=== PATIENT | female | born 1975 | race Caucasian/White ===

== ENCOUNTER 2017-12-23 11:28 | Emergency (ER) | payer OTHER ==
[2017-12-23 11:37] VITALS: BP 99/62
--- NOTE | 2017-12-23 12:15 | UC ---
Lower Extremity/Ankle HPI - HPI Summary HPI Summary: While on a hike yesterday pt noticed achy, odd feeling in her R leg extending up into hip. Has seen some localized redness and firmness in superficial veins on sides of calf and in R upper thigh. Has been tested for clotting d/o because sister had an unprovoked clot in her arm, states she was "negative for everything." Also has hx of melanoma, told it was all out. This pain feels unlike muscle soreness she's had in the past. - History of Current Complaint Chief Complaint: UCLowerExtremity Stated Complaint: LEG COMPLAINT Time Seen by Provider: 12/23/17 11:57 Hx Obtained From: Patient ?: No Onset/Duration: Gradual Onset, Lasting Hours Severity Initially: Mild Severity Currently: Mild Pain Intensity: 4 Aggravating Factor(s): Standing, Ambulation Alleviating Factor(s): Rest Able to Bear Weight: Yes - Allergies/Home Medications Allergies/Adverse Reactions: Allergies Allergy/AdvReac Type Severity Reaction Status Date / Time No Known Allergies Allergy Verified 12/23/17 11:36 Home Medications: Home Medications LevoCETirizine TAB (NF) [Xyzal TAB (NF)] 5 mg PO DAILY 12/23/17 [History Confirmed 12/23/17] PMH/Surg Hx/FS Hx/Imm Hx Other Cardiovascular History: "great saphenous veins closed off" Other Cancer History: Melanoma - Surgical History Surgical History: Yes Surgery Procedure, Year, and Place: MELANOMA EXCISIONS, ORAL SURGERY - Family History Known Family History: Positive: Blood Disorder - blood clots - Social History Occupation: Employed Full-time Lives: With Family Alcohol Use: Occasionally Substance Use Type: None Smoking Status (MU): Never Smoked Tobacco Review of Systems Constitutional: Negative Skin: Other - redness, varicose veins Eyes: Negative ENT: Negative Respiratory: Negative Cardiovascular: Negative Gastrointestinal: Negative Genitourinary: Negative Motor: Negative Neurovascular: Negative Musculoskeletal: Negative Neurological: Negative Psychological: Negative Is Patient Immunocompromised?: No All Other Systems Reviewed And Are Negative: Yes Physical Exam Triage Information Reviewed: Yes Appearance: Well-Appearing, No Pain Distress, Well-Nourished Vital Signs: Initial Vital Signs Temp 97.8 F 12/23/17 11:33 Pulse 72 12/23/17 11:33 Resp 18 12/23/17 11:33 BP 99/62 12/23/17 11:33 Pulse Ox 100 12/23/17 11:33 Vital Signs Reviewed: Yes Eye Exam: Normal Eyes: Positive: Conjunctiva Clear ENT Exam: Normal ENT: Positive: Normal ENT inspection, Hearing grossly normal, Pharynx normal, TMs normal Neck exam: Normal Neck: Positive: Supple, Nontender, No Lymphadenopathy Respiratory Exam: Normal Respiratory: Positive: Chest non-tender, Lungs clear, Normal breath sounds, No respiratory distress, No accessory muscle use Cardiovascular Exam: Normal Cardiovascular: Positive: RRR, No Murmur Musculoskeletal Exam: Other - R mid-calf circumference 39cm, L mid-calf circumference 38cm Musculoskeletal: Positive: Strength Intact, ROM Intact Neurological Exam: Normal Neurological: Positive: Alert Psychological Exam: Normal Skin Exam: Other - few superficial varicose veins, no erythema or warmth. Lower Extremity Course/Dx - Differential Dx/Diagnosis Provider Diagnoses: R leg pain and swelling. R leg superficial varicosities Discharge - Sign-Out/Discharge Documenting (check all that apply): Discharge/Admit/Transfer - Discharge Plan Condition: Stable Disposition: HOME Patient Education Materials: Leg Pain (ED) Referrals: Tami Almonte MD [Primary Care Provider] - Additional Instructions: I recommend you get seen in the emergency department right away. There is a chance you could have a clot in your deep vein system, which would need immediate treatment. - Billing Disposition and Condition Condition: STABLE Disposition: Home
== END 2017-12-23 12:16 | disposition home or self-care (01) ==
LOC: UCEAST 11:28
DX: I83.891 Varicose veins of right lower extremity with other complications (principal); Z85.820 Personal history of malignant melanoma of skin; Z83.2 Family history of diseases of the blood and blood-forming organs and certain disorders involving the immune mechanism
CPT/HCPCS: 99212; G0463

== ENCOUNTER 2017-12-23 12:53 | Emergency (ER) | payer OTHER ==
--- NOTE | 2017-12-23 15:52 | RAD ---
HISTORY: RIGHT CALF PAIN COMPARISONS: None relevant TECHNIQUE: Multiple transverse and longitudinal ultrasound images were obtained of the right lower extremity from the level of the common femoral vein inferiorly through to the infrapopliteal veins using grayscale, color Doppler, and spectral Doppler imaging with and without compression and with augmentation. Comparison images were obtained of the contralateral common femoral vein. FINDINGS: VEINS: The venous system of the right lower extremity is compressible throughout its course, with normal flow on color Doppler imaging and normal response to augmentation on spectral Doppler imaging. SOFT TISSUES: Unremarkable. OTHER FINDINGS: None. IMPRESSION: NO RIGHT LOWER EXTREMITY DEEP VEIN THROMBOSIS
--- NOTE | 2017-12-23 17:27 | ED ---
Lower Extremity - HPI Summary HPI Summary: Pt here w/ Rt leg edema and vascular congestion yesterday after a long hike. Persisted into this morning so she became worried about a DVT. Admits to Rt knee arthritis and h/o vein closure in the past when she lived in [place]. Her swelling and pain has improved since she's been resting on the stretcher with her leg elevated. WHen is was bothering her, it felt like aching and was burning with redness along the medial aspect. Denies fever, chills CP sob, Denies use of hormone, smoking. H/o melanoma. - History of Current Complaint Chief Complaint: EDExtremityLower Stated Complaint: POSS BLOOD CLOT Time Seen by Provider: 12/23/17 15:33 Hx Obtained From: Patient, Family/Tape Librarian - , children Pain Intensity: 3 - Allergies/Home Medications Allergies/Adverse Reactions: Allergies Allergy/AdvReac Type Severity Reaction Status Date / Time No Known Allergies Allergy Verified 12/23/17 13:07 PMH/Surg Hx/FS Hx/Imm Hx Previously Healthy: Yes Endocrine/Hematology History: Denies: Hx Anticoagulant Therapy, Hx Blood Disorders, Hx Diabetes, Hx Unexplained Bleeding, Hx Coagulopothy Cardiovascular History: Denies: Hx Hypertension, Hx Pacemaker/ICD Respiratory History: Denies: Hx Asthma Sensory History: Denies: Hx Hearing Aid Psychiatric History: Denies: Hx Panic Disorder - Cancer History Cancer Type, Location and Year: MELANOMA - Surgical History Surgery Procedure, Year, and Place: MELANOMA EXCISIONS, ORAL SURGERY, vascular closure of vein(s) of LE's Infectious Disease History: No Infectious Disease History: Denies: Traveled Outside the [place] in Last 30 Days - Family History Known Family History: Positive: Blood Disorder - blood clots - sister - Social History Lives: With Family Alcohol Use: Occasionally Hx Substance Use: No Substance Use Type: Reports: None Hx Tobacco Use: No Smoking Status (MU): Never Smoked Tobacco Review of Systems Constitutional: Negative Negative: Fever, Chills, Fatigue Cardiovascular: Negative Negative: Palpitations, Chest Pain Respiratory: Negative Negative: Shortness Of Breath, Cough Gastrointestinal: Negative Negative: Vomiting, Nausea Positive: no symptoms reported Positive: Edema. Negative: Decreased ROM Skin: Other - vessels of this extremity are swollen - no streaking or lesions Neurological: Negative Positive: Anxious All Other Systems Reviewed And Are Negative: Yes Physical Exam Triage Information Reviewed: Yes Vital Signs On Initial Exam: Initial Vitals Temp Pulse Resp BP Pulse Ox 97.4 F 63 16 101/70 98 12/23/17 13:04 12/23/17 13:04 12/23/17 13:04 12/23/17 13:04 12/23/17 13:04 Vital Signs Reviewed: Yes Appearance: Positive: Well-Appearing, No Pain Distress, Well-Nourished Skin: Positive: Warm, Skin Color Reflects Adequate Perfusion, Dry - spider veins along medial aspect of Rt knee and subtly more prominent veins just distal to popliteal space and medial thigh - NTTP, very subtle tissue edema compared to Lt - appears congested; no erythema, no lesions, no streaking ENT: Positive: Hearing grossly normal Respiratory/Lung Sounds: Positive: Breath Sounds Present Cardiovascular: Positive: Pulses are Symmetrical in both Upper and Lower Extremities. Negative: Leg Edema Left, Leg Edema Right - (-) Gilberto's Musculoskeletal: Positive: Normal, Strength/ROM Intact - neg special tests Neurological: Positive: Normal, Sensory/Motor Intact, Alert, Oriented to Person Place, Time, CN Intact II-III Psychiatric: Positive: Anxious Diagnostics - Vital Signs Vital Signs Temp Pulse Resp BP Pulse Ox 12/23/17 14:44 97.3 F 77 16 110/68 100 12/23/17 13:04 97.4 F 63 16 101/70 98 - Laboratory Lab Statement: Any lab studies that have been ordered have been reviewed, and results considered in the medical decision making process. Lower Extremity Course/Dx - Course Course Of Treatment: U/S: neg for DVT, phlebitis. Suspect with long hike and h/ o vascular closure on LE's in the past, pt experienced poor fluid rturn and this may have resulted in tissue/ and vascular congestion. Discussed that she needs close f/u and if sx persist or worsen, a repeat U/S is warranted given her sister's h/o blood clots. Pt agrees w/ plan. Will also start an ASA daily until she f/u's w/ her PCP. She reports her leg looks better since resting and elevating it while waiting to be seen. Reviewed danger s/sx of when to return to ED. - Diagnoses Provider Diagnoses: Right leg swelling Discharge - Sign-Out/Discharge Documenting (check all that apply): Discharge/Admit/Transfer - Discharge Plan Condition: Stable Disposition: HOME Patient Education Materials: Leg Edema (ED) Referrals: Tami Almonte MD [Primary Care Provider] - Aurelio Hunter MD [Medical Doctor] - Additional Instructions: The definitive cause of your leg swelling was not identified today however it is suspected that this was the result of your hike yesterday in the face of less veins to clear fluid from the area. Continue to rest and elevate. You may also ice the area to reduce swelling and heat. May take aspirin or ibuprofen with food for pain and achiness. Follow-up with her PCP this week if symptoms persist. You were also given the number of a vascular specialist if you'd like to seek further consult there. *If you develop worsening of pain, chest pain, shortness of breath, fever, chills, increased heart rate, bloody cough, return to the emergency department. - Billing Disposition and Condition Condition: STABLE Disposition: Home
[2017-12-23 18:15] VITALS: BP 107/61
== END 2017-12-23 18:12 | disposition home or self-care (01) ==
LOC: ED 12:53
DX: M79.89 Other specified soft tissue disorders (principal); M17.11 Unilateral primary osteoarthritis, right knee; Z86.79 Personal history of other diseases of the circulatory system
CPT/HCPCS: 99282

== ENCOUNTER 2018-06-27 12:41 | Emergency (ER) | payer OTHER ==
--- OUTSIDE RECORDS SUMMARY | 2018-06-27 13:58 | XMS REPORT | Continuity of Care Document ---
:1975 External Reference #:[id number] Author Name Pagan, Lori Care Team Providers Name Role Phone Jessie Locke M.D. Primary Care Physician Unavailable Payers Type Date Identification Numbers Payment Provider Subscriber Policy Number: [id number] [employer] [place] [employer] Number: [id number] [address] PayID: [id number] [place] [address] Effective: 2016 Policy Number: [id number] [facility] [place] Expires: 2018 Group Number: [id number]% [id number] PayID: [id number] [facility] [address] [place] [address] Advance Directives Type Date Description Status Comment Other Directive 03/08/2017 Health Care Proxy Current and Verified Problems Date Description Provider Status Onset: 06/06/2016 H/O Malignant melanoma Gabe Mosquera NP Active Onset: 06/06/2016 Fear of flying Gabe Mosquera NP Active Onset: 06/12/2017 Osteoarthritis of knee Tami Almonte M.D. Active Note: grade 1 Onset: 06/12/2017 Allergic rhinitis Tami Almonte M.D. Active Note: dust /grass Onset: Varicose veins of lower extremity Active Note: R leg ( saw Dr. 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 daily Multivitamin 00 Active Tablets 1 by mouth Unknown Adult /0000 every day Calcium Active Tablets 500-125mg 1 by mouth Unknown 500/Vitamin D /0000 -Unit three days a week Fish Oil Active Capsules 300mg three times a Unknown / week Xanax Active Tablets 0.5mg 30tab as needed for F40.243 Jessie s flying Chucky MD Xyzal Allergy Active Tablets 1 by mouth Unknown 24HR /0000 every day Odactra Active Tablets Sub 12SQ-HDM daily Unknown /0000 Zyrtec Allergy 06/06 Hx Tablets 10mg 30tab 1 by mouth J30.9 /2015 s every day for [place], - the next 3-4 RECEIVABLES SPECIALIST 01/22 weeks, as needed Triple 06/06 Hx Ointment 1% 30gm apply L08.9 Gabe topically [place], Plus - twice daily x RECEIVABLES SPECIALIST 02/27 7-10 days /2016 Buspirone HCL Hx Tablets 10mg takes F43.0 Unknown /0000 occationally - 06/12 Vitamin D Hx 1000Units 3 times a Unknown /0000 week - 06/19 Medications Administered in Office Medication Date Status Form Strength Qnty SIG Indications Ordering Provider Celestone 3 mg Administered Injection Oscar and 3mg Jg Etienne MD Immunizations CPT Code Status Date Vaccine Lot # [id number] Given 04/02/2018 Influenza Virus Vaccine, Quadrivalent, Split, Preservative Free [id number] Given 03/16/2017 Influenza Virus Vaccine, Quadrivalent, Split, Preservative Free Vital Signs Date Vital Result Comment 06/19/2018 1:14pm Height 67.75 inches 5'7.75" Weight 148.00 lb Heart Rate 88 /min BP Systolic Sitting 92 mmHg BP Diastolic Sitting 58 mmHg Body Temperature 96.6 F O2 % BldC Oximetry 99 % BMI (Body Mass Index) 22.7 kg/m2 01/22/2018 2:41pm Weight 152.38 lb Heart Rate 71 /min BP Systolic Sitting 108 mmHg BP Diastolic Sitting 62 mmHg Body Temperature 98.9 F O2 % BldC Oximetry 98 % 06/12/2017 9:12am Height 68.9 inches 5'8.90" Weight 180.12 lb Heart Rate 81 /min BP Systolic Sitting 108 mmHg BP Diastolic Sitting 76 mmHg Body Temperature 97.9 F O2 % BldC Oximetry 98 % BMI (Body Mass Index) 26.7 kg/m2 05/25/2017 1:30pm Height 68 inches 5'8" Weight 178.00 lb BP Systolic 114 mmHg BP Diastolic 68 mmHg Respiratory Rate 20 /min Pain Level 0 BMI (Body Mass Index) 27.1 kg/m2 05/11/2017 10:30am Height 68 inches 5'8" Weight 178.00 lb Heart Rate 71 /min BP Systolic 101 mmHg BP Diastolic 69 mmHg BMI (Body Mass Index) 27.1 kg/m2 02/28/2017 9:16am Height 68 inches 5'8" Weight 175.50 lb Heart Rate 80 /min BP Systolic Sitting 100 mmHg BP Diastolic Sitting 60 mmHg Body Temperature 98.0 F O2 % BldC Oximetry 97 % BMI (Body Mass Index) 26.7 kg/m2 06/06/2016 8:24am Height 68 inches 5'8" Weight 171.38 lb Heart Rate 80 /min BP Systolic Sitting 110 mmHg BP Diastolic Sitting 70 mmHg Body Temperature 98.1 F O2 % BldC Oximetry 98 % BMI (Body Mass Index) 26.1 kg/m2 Results Test Date Facility Test Result H/L Range Note Laboratory test 06/12/2017 [facility] Cytology SEE RESULT [address] [address] [phone] Lipid Profile 06/05/2017 [facility] Triglycerides 74 mg/dL 2 (Trig/Chol/HDL) [address] [place] [address] [phone] Cholesterol 166 mg/dL 3 HDL Cholesterol 54.9 mg/dL 4 LDL Cholesterol 96 mg/dL 5 Comp Metabolic Panel 06/05/2017 [facility] Sodium 137 mmol/L N 133-[address] [place] [address] [phone] Potassium 4.3 mmol/L N 3.5-5.0 Chloride 105 mmol/L N 101-111 Co2 Carbon Dioxide 26 mmol/L N 22-32 Anion Gap 6 mmol/L N 2-11 Glucose 86 mg/dL N 70-100 Blood Urea Nitrogen 12 mg/dL N 6-24 Creatinine 0.79 mg/dL N 0.51-0.95 BUN/Creatinine Ratio 15.2 N 8-20 Calcium 9.3 mg/dL N 8.6-10.3 Total Protein 7.3 g/dL N 6.4-8.9 Albumin 4.4 g/dL N 3.2-5.2 Globulin 2.9 g/dL N 2-4 Albumin/Globulin Ratio 1.5 N 1-3 Total Bilirubin 0.60 mg/dL N 0.2-1.0 Alkaline Phosphatase 49 U/L N 34-104 Alt 12 U/L N 7-52 Ast 17 U/L N 13-39 Egfr Non- 81.0 >60 Egfr 104.2 >60 6 Laboratory test 10/06/2016 [facility] Surgical SEE RESULT 7 , [address] [place] [address] [phone] Laboratory test 06/06/2016 [facility] TSH (Thyroid 1.84 N 0.34 - finding DRIVE Stim Horm) mcIU/mL 5.60 [place] [address] [phone] CBC Auto Diff 06/06/2016 [facility] White Blood 6.8 10^3/uL N 3.5-[address] DRIVE Count 0.8 [place] [address] [phone] Red Blood Count 4.47 10^6/uL N 4.0-5.4 Hemoglobin 13.0 g/dL N 12.0-16.0 Hematocrit 39 % N 35-47 Mean Corpuscular Volume 87 fL N 80-97 Mean Corpuscular Hemoglobin 29 pg N 27-31 Mean Corpuscular HGB Conc 33 g/dL N 31-36 Red Cell Distribution Width 13 % N 10.5-15 Platelet Count 206 10^3/uL N 150-450 Mean Platelet Volume 9 um3 N 7.4-10.4 Abs Neutrophils 4.4 10^3/uL N 1.5-7.7 Abs Lymphocytes 1.7 10^3/uL N 1.0-4.8 Abs Monocytes 0.5 10^3/uL N 0-0.8 Abs Eosinophils 0.1 10^3/uL N 0-0.6 Abs Basophils 0 10^3/uL N 0-0.2 Abs Nucleated RBC 0.01 10^3/uL N Granulocyte % 65.4 % N 38-83 Lymphocyte % 25.1 % N 25-47 Monocyte % 7.1 % N 1-9 Eosinophil % 2.0 % N 0-6 Basophil % 0.4 % N 0-2 Nucleated Red Blood Cells % 0.1 N Basic Metabolic Panel 06/06/2016 [facility] Sodium 137 mmol/L N 133-[address] [place] [address] [phone] Potassium 4.0 mmol/L N 3.5-5.0 Chloride 103 mmol/L N 101-111 Co2 Carbon Dioxide 29 mmol/L N 22-32 Anion Gap 5 mmol/L N 2-11 Glucose 81 mg/dL N 70-100 Blood Urea Nitrogen 12 mg/dL N 6-24 Creatinine 0.74 mg/dL N 0.51-0.95 BUN/Creatinine Ratio 16.2 N 8-20 Calcium 9.3 mg/dL N 8.6-10.3 Egfr Non- 87.8 N >60 Egfr 113.0 N >60 9 1 SEE RESULT BELOW Name: PEGGYWASHINGTON A : [address]: Tami Almonte MD Acct: [id number] Unit: [id number] AGE: 41 Location: [facility] Re06/12/17 SEX: F Status: REG REF SPEC: [id number] NAHEED: 06/12/[address] [facility] [address]: Tami Almonte MD REQ: [id number] RECD: 06/12/17 STATUS: SOUT _ ORDERED: TP IMAGE ANAL, ECHOCARDIOGRAPHY TECH PHYS INTERP, HPV/Thin Prep, HPV 16/18 GENE COMMENTS: [id number] Negative for Intraepithelial lesion or Malignancy Reactive cellular changes associated with Inflammation (includes typical repair) A. Ectocervical/Endocervical Specimen Adequacy: Satisfactory of evaluation Transformation zone component identified Patient Information: HPV: High risk HPV RNA testing regardless of pap results. HPV 16/18 Genotype Reflex Actual Specimen Date: 06/12/17 Last Menstrual Date: 06/08/17 Previous Abnormal Pap Smears?:N Date Time Test Result Flag (u) Normal Range 06/12/17 0951 @ HPV RNA RFLX GE Negative Negative @ @ The high-risk HPV types detected by the assay include: 16, @ 18, 31, 33, 35, 39, 45, 51, 52, 56, 58, 59, 66, and 68. Signed (signature on file) Abraham Gomez MD 1626 This Pap test was evaluated with the assistance of the LibriLoopPrep Test Imaging System. Due to cytologic findings at the first aid officer microscope, comprehensive manual rescreening by a Vehicle Fare Collector may be required. The Pap Smear is a screening test designed to aid in the detection of premalignant and malignant conditions of the uterine cervix. It is not a diagnostic procedure and should not be used as the sole means of detecting cervical cancer. Both false- positive and false- negative reports do occur. Depending on your risk status, a Pap smear should be obtained and evaluated every 1-3 years. END OF REPORT * ML=Testing performed at Main Lab DEPARTMENT OF PATHOLOGY, [address] [place] [address] Abraham Gomez M.D. Director [facility] # [id number] 2 Desirable: <150 Borderline High: 150-199 High: 200-499 Very High: >500 3 Desirable: <200 Borderline High: 200-239 High: >239 4 Low: <40 Desirable: 40-60 High: >60 5 Desirable: <100 Near Optimal: 100-129 Borderline High: 130-159 High: 160-189 Very High: >189 6 Because ethnic data is not always readily available, this report includes an eGFR for both -Americans and non- Americans. The National Kidney Disease Education Program (NKDEP) does not endorse the use of the MDRD equation for patients that are not between the ages of 18 and 70, are , have extremes of body size, muscle mass, or nutritional status, or are non- or non-. According to the National Kidney Foundation, irrespective of diagnosis, the stage of the disease is based on the level of kidney function: Stage Description GFR(mL/min/1.73 m(2)) 1 Kidney damage with normal or decreased GFR 90 2 Kidney damage with mild decrease in GFR 60-89 3 Moderate decrease in GFR 30-59 4 Severe decrease in GFR 15-29 5 Kidney failure <15 (or dialysis) 7 [id number] 8 SEE RESULT BELOW Name: [place] : [address]: Riley Pham MD Acct: [id number] Unit: [id number] AGE: 41 Location: [facility] Re10/06/16 SEX: F Status: REG REF SPEC: [id number] NAHEED: 10/06/16-[address] [facility] [address]: Riley Pham MD REQ: [id number] RECD: 10/06/16-160 STATUS: PAUL SIM DR: Merry Mosquera RECEIVABLES SPECIALIST _ ORDERED: LEVEL IV COMMENTS: [id number] FINAL DIAGNOSIS Skin, right ear, excision: -- Prior biopsy related changes. -- No residual melanocytic proliferation identified. CLINICAL HISTORY See [facility] BM46 - [id number] - lentiginous compound nevus with moderate cytologic atypia extending to the tissue edge PRE-OPERATIVE DIAGNOSIS Atypical nevus; suture talavera 12 o'clock superior apex margin GROSS DESCRIPTION The specimen is received in formalin labeled, Excision Atypical Nevus Right Ear, Suture Talavera 12:00 Superior Grey Eagle Margin, and consists of a 2.6 x 0.8 cm angulo-white skin ellipse excised to a depth of 0.3 cm. There is a suture attached to one long axis, which designates the 12:00 superior apex margin. The specimen is inked as follows: 9:00 half black, 3:00 half blue and 12:00 tip green, serially sectioned from 12:00 to 6:00 and entirely submitted in cassettes A through C to include ellipse ends in cassette A. Signed (signature on file) Abraham Gomez MD [id number] END OF REPORT * ML=Testing performed at Main Lab DEPARTMENT OF PATHOLOGY, [address] [place] [address] Abraham Gomez M.D. Director [facility] # [id number] 9 Because ethnic data is not always readily available, this report includes an eGFR for both -Americans and non- Americans. The National Kidney Disease Education Program (NKDEP) does not endorse the use of the MDRD equation for patients that are not between the ages of 18 and 70, are , have extremes of body size, muscle mass, or nutritional status, or are non- or non-. According to the National Kidney Foundation, irrespective of diagnosis, the stage of the disease is based on the level of kidney function: Stage Description GFR(mL/min/1.73 m(2)) 1 Kidney damage with normal or decreased GFR 90 2 Kidney damage with mild decrease in GFR 60-89 3 Moderate decrease in GFR 30-59 4 Severe decrease in GFR 15-29 5 Kidney failure <15 (or dialysis) Procedures Date Code Description Status 07/24/2017 [id number] Mammogram Completed 05/25/2017 39346 Inject Tendon Sheath Or Ligament Aponeurosis Eg Plantar Completed Fascia Encounters Type Date Location Provider Dx Diagnosis Office Visit 01/22/2018 [facility] Internal Medicine Tami Almonte, R49.0 Dysphonia 2:40p - Betsy Moya J30.9 Allergic rhinitis, unspecified F40.243 Fear of flying Office Visit 06/12/2017 9:10a [facility] Internal Tami Almonte, Z00.00 [facility] - M.D. general adult [facility] medical exam w/o abnormal findings J30.9 Allergic rhinitis, unspecified Z12.31 Encntr screen mammogram for malignant neoplasm of breast Z12.4 Encounter for screening for malignant neoplasm of cervix Office Visit 05/25/2017 [facility] Oscar M65.841 Other synovitis and 1:15p Services Of MD Jaimie tenosynovitis, right C.M.A. hand Office Visit 05/11/2017 Orthopedic Oscar M25.531 Pain in right wrist 8:30a [facility] C.M.A. Office Visit 02/28/2017 [facility] Internal Tami M25.561 Pain in right knee 9:20a Nita Collier M25.562 Pain in left knee M25.531 Pain in right wrist Office Visit 06/06/2016 8:40a [facility] Internal Gabe Mosquera, Z00.00 [facility] - [place] RECEIVABLES SPECIALIST general adult Rd medical exam w/o abnormal findings R53.83 Other fatigue F43.0 Acute stress reaction F40.243 Fear of flying L08.9 Local infection of the skin and subcutaneous tissue, unsp J30.9 Allergic rhinitis, unspecified Plan of Treatment No Information Available
[2018-06-27 14:11] VITALS: BP 95/67
--- NOTE | 2018-06-27 14:17 | UC ---
Complaint Female HPI - HPI Summary HPI Summary: Started w/ intermittent vaginal itching and some white discharge approx 1 wk ago. Finished antibx for a 'viral infection in her chest' recently. Has had BV before and states it feels very similar. - History Of Current Complaint Chief Complaint: UCGU Stated Complaint: BURNING URINATION Time Seen by Provider: 06/27/18 12:42 Hx Obtained From: Patient Hx Last Menstrual Period: 06/17/18 ?: No - vasectomy Onset/Duration: Gradual Onset Timing: Intermittent Pain Intensity: 1 Pain Scale Used: 0-10 Numeric Aggravating Factor(s): Nothing Alleviating Factor(s): Nothing Associated Signs And Symptoms: Positive: Negative - Allergies/Home Medications Allergies/Adverse Reactions: Allergies Allergy/AdvReac Type Severity Reaction Status Date / Time No Known Allergies Allergy Verified 06/27/18 14:03 Home Medications: Home Medications Fluticasone NASAL SPRAY 50MCG* [Flonase NASAL SPRAY 50MCG*] 2 spray BOTH NARES DAILY 06/27/18 [History Confirmed 06/27/18] PMH/Surg Hx/FS Hx/Imm Hx - Additional Past Medical History Additional PMH: Last pap NL w/in 3 yrs Previously Healthy: Yes Other History Of: Negative For: Anticoagulant Therapy - Surgical History Surgical History: Yes Surgery Procedure, Year, and Place: [facility], ORAL SURGERY, 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 2018 - Family History Known Family History: Positive: Blood Disorder - blood clots - sister, Non- Contributory - Social History Alcohol Use: Occasionally Substance Use Type: None Smoking Status (MU): Never Smoked Tobacco Review of Systems All Other Systems Reviewed And Are Negative: Yes Constitutional: Positive: Negative Skin: Positive: Negative Genitourinary: Positive: Dysuria, Vaginal/Penile Burning, Vaginal/Penile Itching. Negative: Hematuria, Vaginal/Penile Pain, Vaginal/Penile Tenderness, Ulceration/Lesion, Abnormal Bleeding Physical Exam Triage Information Reviewed: Yes Appearance: Well-Appearing Vital Signs: Initial Vital Signs Temp 98.8 F 06/27/18 14:05 Pulse 83 06/27/18 14:05 Resp 18 06/27/18 14:05 BP 95/67 06/27/18 14:05 Pulse Ox 100 06/27/18 14:05 Vital Signs Reviewed: Yes Pelvic Exam: Positive: No Cerv. Motion Tender, Discharge - minimal cottage cheese appearance, Other - Cervix shows erythematous, nontender abnormality at 8 oclock. Negative: Active Bleeding, Blood, Cervicitis, Mass, Ulcers Complaint Female Dx - Course Course Of Treatment: Vaginal discharge/vaginitis x1wk after antibx use. Will tx for fungal source and sent for gc/chlam, affirm. urine hcg neg, UA unremarkable. Cervix needs f/u outpt. for ? lesion. Up to date w/ pap w/in 3yrs. and was previously nl per pt. - Differential Dx/Diagnosis Differential Diagnosis/HQI/PQRI: , Sexually Transmitted Disease, Urinary Tract Infection Provider Diagnosis: Vaginitis Discharge - Sign-Out/Discharge Documenting (check all that apply): Patient Departure All imaging exams completed and their final reports reviewed: No Studies - Discharge Plan Condition: Good Disposition: HOME Prescriptions: Fluconazole 150 MG TAB* [Diflucan 150 MG TAB*] 150 mg PO ONCE 1 Days #1 tablet Patient Education Materials: Vaginitis (ED) Referrals: Jessie Locke MD [Primary Care Provider] - Additional Instructions: I am treating you for a yeast infection. It is my recommendation to see your SEAMSTRESS FITTER for a vaginal/cervix exam given our findings today. - Billing Disposition and Condition Condition: GOOD Disposition: Home
== END 2018-06-27 14:46 | disposition home or self-care (01) ==
LOC: UCEAST 12:41
DX: N76.0 Acute vaginitis (principal)
CPT/HCPCS: 81003; 84702; 87480; 87491; 87510; 87591; 87661; 99212; G0463